=== PATIENT | female | born 1970 | race African-American/Black ===

== ENCOUNTER 2018-07-19 11:18 | Emergency (ER) | payer BC, OTHER ==
[2018-07-19 11:32] VITALS: BP 116/50; PULSE 85; TEMP 97.9; BMI 36.8
--- NOTE | 2018-07-19 11:40 | PDOC ---
History of Present Illness - General Chief Complaint: Vaginal Sxs Stated Complaint: VAGINAL SXS History Source: Patient Exam Limitations: No Limitations - History of Present Illness Travel History: No Initial Comments: 07/19/18 12:29 Best Contact: PCP:In [place] Pmhx:Hypothyroid Pshx: LEEP, uterine polyp removed Allergies: Doxycycline/hives FH:0 Social Hx: Cigarettes/ 0 Alcohol/ 0 Drugs/0 LMP:06/26/2018 48-year-old female presents to the emergency department complaining of vaginal itch with some swelling to the vaginal area, burning upon urination, pain with colitis, soreness 2 days without fever, chills, nausea/vomiting, chest pain, shortness of breath, flank pains, abdominal pains, urinary frequency urgency hesitancy or hematuria. Patient states symptoms feel similar to her previous candidiasis/infection. Patient states the only thing that works is Diflucan . Pt hasn't been sexually active. Past History - Past Medical History Allergies/Adverse Reactions: Allergies Allergy/AdvReac Type Severity Reaction Status Date / Time doxycycline Allergy Severe Hives Verified 07/19/18 11:29 Home Medications: Ambulatory Orders Albuterol Sulfate Inhaler - [Ventolin HFA Inhaler -] 1 - 2 inh PO Q4H PRN #1 inhaler 05/12/18 Fluconazole [Diflucan] 150 mg PO ONCE #1 tablet 07/19/18 Levothyroxine [Synthroid -] 112 mcg PO DAILY 07/19/18 Asthma: Yes COPD: No Thyroid Disease: Yes (hypo) - Immunization History Immunization Up to Date: Yes - Suicide/Smoking/Psychosocial Hx Smoking History: Unknown if ever smoked Hx Alcohol Use: No Drug/Substance Use Hx: No Review of Systems - Review of Systems Able to Perform ROS?: Yes Comments:: 07/19/18 12:27 CONSTITUTIONAL: Absent: fever, chills, diaphoresis, generalized weakness, malaise, loss of appetite HEENT: Absent: rhinorrhea, nasal congestion, throat pain, throat swelling, difficulty swallowing, mouth swelling, ear pain, eye pain, visual Changes CARDIOVASCULAR: Absent: chest pain, loss of consciousness, palpitations, irregular heart rate, peripheral edema RESPIRATORY: Absent: cough, shortness of breath, dyspnea with exertion, orthopnea, wheezing, stridor, hemoptysis GASTROINTESTINAL: Absent: abdominal pain, abdominal distension, nausea, vomiting, diarrhea, constipation, melena, hematochezia GENITOURINARY: +[place] clumpsy discharge/vaginal vault Absent: dysuria, frequency, urgency, hesitancy, hematuria, flank pain, genital pain SKIN: Absent: rash, itching, pallor Is the patient limited Ecuadorean proficient: No *Physical Exam - Vital Signs Last Vital Signs Temp Pulse Resp BP Pulse Ox 97.9 F 85 18 116/50 L 100 07/19/18 11:32 07/19/18 11:32 07/19/18 11:32 07/19/18 11:32 07/19/18 11:32 - Physical Exam Comments: 07/19/18 12:26 GENERAL: Well developed, well nourished. Awake and alert. No acute distress. HEENT: Normocephalic, atraumatic. PERRLA, EOMI. No conjunctival pallor. Sclera are non- icteric. Moist mucous membranes. Oropharynx is clear. ABDOMINAL: Soft. Non-tender. Non-distended. No rebound or guarding. No organomegaly. Normoactive bowel sounds. SKIN: Warm and dry. Normal capillary refill. No rashes. No jaundice. Pelvic: External genitalia normal without lesions. Vaginal vault is clear without blood or discharge. Cervix is long and closed. No cervical motion tenderness. Uterus is nontender and normal in size. Adnexa are nontender and without masses. Moderate Sedation - Procedure Monitoring Vital Signs: Procedure Monitoring Vital Signs Temperature 97.9 F 07/19/18 11:32 Pulse Rate 85 07/19/18 11:32 Respiratory Rate 18 07/19/18 11:32 Blood Pressure 116/50 L 07/19/18 11:32 O2 Sat by Pulse Oximetry (%) 100 07/19/18 11:32 *DC/Admit/Observation/Transfer Diagnosis at time of Disposition: Yeast infection - Discharge Dispostion Disposition: HOME Condition at time of disposition: Stable Decision to Admit order: No - Prescriptions Prescriptions: Fluconazole [Diflucan] 150 mg PO ONCE #1 tablet - Referrals Referrals: Lisa Rudolph MD [Staff Physician] - - Patient Instructions Printed Discharge Instructions: DI for Vaginal Yeast Infection Additional Instructions: Pelvic rest Be sure to follow with your date night sitter next week Increase fluids Return back to the ER for severe/persistent or worsening symptoms - Post Discharge Activity
[2018-07-19 12:06] LABS: URINE APPEARANCE CLEAR; URINE BILIRUBIN NEGATIVE (<2.0 mg/dL); URINE COLOR YELLOW; URINE GLUCOSE (UA) NEGATIVE (NEGATIVE); URINE KETONE NEGATIVE (NEGATIVE); URINE LEUK ESTERASE NEGATIVE (NEGATIVE); URINE NITRITE NEGATIVE (NEGATIVE); URINE PROTEIN NEGATIVE (NEGATIVE)
[2018-07-19 12:13] LABS: HCG,QUALITATIVE URINE NEGATIVE
== END 2018-07-19 12:52 | disposition home or self-care (01) ==
LOC: JERFT 11:18
DX: B37.3 Candidiasis of vulva and vagina (principal)
CPT/HCPCS: 36415; 81003; 84703; 87070; 87205; 87491; 87591; 99281-25